=== PATIENT | female | born 1990 | race Caucasian/White ===

== ENCOUNTER 2019-12-04 10:40 | Outpatient (CLI) | payer SELFPAY | END 2019-12-04 23:59 | disposition home or self-care (01) | LOC: COV 10:40 | PROVIDERS: ATTEND Family Medicine | DX: M79.10 Myalgia, unspecified site (principal); J02.9 Acute pharyngitis, unspecified; R11.2 Nausea with vomiting, unspecified; Z20.828 Contact with and (suspected) exposure to other viral communicable diseases ==

== ENCOUNTER 2019-12-12 10:10 | Outpatient (CLI) | payer SELFPAY | END 2019-12-12 23:59 | disposition home or self-care (01) | LOC: COV 10:10 | PROVIDERS: ATTEND Family Medicine | DX: R53.83 Other fatigue (principal); J02.9 Acute pharyngitis, unspecified; Z20.828 Contact with and (suspected) exposure to other viral communicable diseases ==

== ENCOUNTER 2020-05-08 15:18 | Outpatient (CLI) | payer OTHER | END 2020-05-08 15:19 | disposition home or self-care (01) | LOC: COV 15:18 | PROVIDERS: ATTEND Family Medicine | DX: R06.02 Shortness of breath (principal); R19.7 Diarrhea, unspecified; R53.83 Other fatigue; M79.10 Myalgia, unspecified site; Z20.828 Contact with and (suspected) exposure to other viral communicable diseases ==

== ENCOUNTER 2023-09-30 10:04 | Outpatient (CLI) | payer BC | END 2023-09-30 10:05 | disposition home or self-care (01) | LOC: RT 10:04 | PROVIDERS: ATTEND Nurse Practitioner Psychiatric/Mental Health | DX: F90.0 Attention-deficit hyperactivity disorder, predominantly inattentive type (principal) | CPT/HCPCS: 93005 ==